=== PATIENT | female | born 1970 | race Caucasian/White ===

== ENCOUNTER 2018-07-29 15:16 | Outpatient (CLI) | payer BC ==
--- NOTE | 2018-07-29 17:07 | RAD ---
SACROILIAC JOINT RADIOGRAPHS THREE VIEWS: Date: 07-29-18 Provided Clinical History: Low back pain. FINDINGS: There is no evidence for fracture or other acute osseous abnormality. The sacroiliac joints appear sy mmetric in terms of width. There is no evidence for periarticular sclerosis or erosion of the subchon dral bone plate. No lytic or blastic lesions are seen. IMPRESSION: No radiographic evidence for sacroiliitis. POS: ARABELLA
--- NOTE | 2018-07-29 17:08 | RAD ---
TWO VIEWS RIGHT HIP: Date: 07-29-18 Provided Clinical History: Right hip pain. FINDINGS: No evidence for fracture or other acute osseous abnormality. Alignment appears anatomic. Joint spaces appear preserved. No concerning lytic or blastic lesions are seen. IMPRESSION: No evidence for an acute osseous abnormality or significant arthropathy. POS: [facility]ELLA
== END 2018-07-29 15:17 | disposition home or self-care (01) ==
LOC: SCSRAD 15:16
PROVIDERS: ATTEND Family Medicine
DX: M25.551 Pain in right hip (principal); M46.1 Sacroiliitis, not elsewhere classified
CPT/HCPCS: 72202